=== PATIENT | male | born 1960 | race Caucasian/White ===

== ENCOUNTER 2020-12-05 09:50 | Inpatient (IN) | payer OTHER, SELFPAY ==
[2020-12-05] VITALS (32 sets, daily range): BP systolic 124–216; BP diastolic 64–157; PULSE 51–90; RESP 12–26; TEMP 36.2–36.8; O2SAT 87–98; BMI 44.4
--- NOTE | 2020-12-05 09:54 | XR_ITS ---
WS: [id number] Portable AP upright chest, 12/05/2020 Clinical Data: chest pain Comparison: Portable chest, 03/24/2011. Findings: No nodules, masses or effusions are seen. The heart is enlarged. The pulmonary vascularity is not increased. No pneumonia or pneumothorax is seen. The aortic arch is tortuous as is the descend ing aorta. XR/XR chest 1V portable [id number] Impression: Atherosclerotic sclerosis and cardiomegaly.
--- NOTE | 2020-12-05 09:54 | ECG_ITS ---
[facility] Test Date: 2020-12-05 Pat Name: Seda Azar Department: Room: Gender: Male General Inspector: : 1960 Requested By: Jimena Rinaldi Order Number: [id number] Katty MD: Lance Navarrete M.D. Measurements Intervals [place] Rate: 85 P: 57 AK: 249 QRS: -85 QRSD: 128 T: 89 QT: 412 QTc: 492 Interpretive Statements SINUS RHYTHM WITH FIRST DEGREE AV BLOCK MODERATE INTRAVENTRICULAR CONDUCTION DELAY [110+ ms QRS DURATION] MODERATE ST DEPRESSION [0.05+ mV ST DEPRESSION] No previous ECG available for comparison Electronically Signed On 12-05-2020 17:14:12 MULTISKILL OPERATOR by Lance Navarrete M.D. [email or web address]/Ov/[id number]
--- NOTE | 2020-12-05 10:07 | W.ED.SOB ---
Documented by User: SHEILA Caldwell 12/05/20 14:40 HPI - SOB/Dyspnea General: Chief Complaint: Shortness of Breath/Dyspnea Stated Complaint: SOB/Tightness/racing heart Time Seen by Provider: 12/05/20 09:52 Source: patient Mode of arrival: ambulatory Limitations: no limitations History of Present Illness: HPI Narrative: Patient is a very nice 60-year-old gentleman with a history of NSTEMI, HTN, and CHF here for complaints of shortness of breath and intermittent chest discomfort and palpitations. Patient tells me he has noticed worsening shortness of breath over the past few weeks-worse with lying flat. He has had to use several pillows to sit up at night. Patient does take 40 mg Lasix daily. He has not noticed any weight gain or swelling to his lower extremities. He is having intermittent dull achy sensations to the right side of his chest over the past few days. He has also noticed intermittent feelings of his heart racing . Patient tells me he was diagnosed with an NSTEMI in 2010. He was admitted to our facility during that visit. Documentation shows a echocardiogram in 2010 being performed with a EF of 35-40%. Patient has not had any outpatient follow-up following that visit stating he did not have insurance at the time. Patient takes diltiazem and lisinopril daily for his blood pressure. He tells me over the past few weeks he has noticed elevated blood pressures. Patient noted to be extremely hypertensive upon arrival at 212/134. He does not complain of a headache or visual changes at this time. MD elicited complaint: shortness of breath and chest pain Pertinent past history: congestive heart failure and other (HTN, NSTEMI) Onset (ago): day(s) Timing: intermittent Exacerbating factors: lying flat Relieving factors: upright position Associated symptoms: Reports chest pain, orthopnea and palpitations; Deny abdominal pain, chest congestion, dizziness, fever(s), hemoptysis, lightheadedness, nausea, syncope or vomiting Related Data: Home oxygen amount: none Review of Systems Const: Denies: fever(s), chills, body aches, fatigue or malaise Eyes: Denies: change in vision Card: Reports: chest pain, palpitations, dyspnea on exertion and orthopnea; Denies: irregular heart rhythm, edema, swelling of feet/ankles, lightheadedness, syncope, pre-syncope, leg pain with exertion or acrocyanosis Resp: Reports: dyspnea; Denies: productive cough, non-productive cough, wheezing, stridor, pain on inspiration, change in phlegm color, hemoptysis or chest congestion GI: Denies: abdominal pain, nausea, vomiting or diarrhea Musc: Denies: neck pain or back pain Skin/Breast: Denies: rash Neuro: Denies: headache(s), numbness in extremities, weakness in extremities, sensory changes, lack of coordination, difficulty walking, frequent falls, dizziness, vertigo, confusion, behavioral changes, Slurred speech present or difficulty communicating thoughts Physical Exam Const: COMMON NORMALS: no acute distress, patient oriented x3, no limitations and alert GENERAL APPEARANCE: cooperative NUTRITIONAL APPEARANCE: obese ORIENTATION/CONSCIOUSNESS: Yes awake, Yes oriented to person, Yes oriented to place and Yes oriented to time HENMT: COMMON NORMALS: normocephalic and atraumatic HEAD & SCALP: normocephalic and atraumatic Resp: COMMON NORMALS: normal respiratory effort and clear to auscultation bilaterally AUSCULTATION: clear to auscultation bilaterally Cardio: COMMON NORMALS: regular rate and regular rhythm RATE: regular rate RHYTHM: regular rhythm GI: COMMON NORMALS: Normal to inspection, nondistended, normoactive bowel sounds present, Soft to palpation, non-tender, No hepatosplenomegaly present and no masses INSPECTION: No Anasarca PALPATION: Yes Soft to palpation and Yes No hepatosplenomegaly present Extremity: COMMON NORMALS: capillary refill normal, no clubbing, cyanosis or edema, no calf tenderness and no pedal edema Neuro: SENSORIUM/ORIENTATION: Yes alert, Yes oriented to person, Yes oriented to place and Yes oriented to time Skin: COMMON NORMALS: no rashes or lesions noted GENERAL SKIN EXAM: no rashes or lesions noted Course Vital Signs: Vital signs: Vital Signs Temperature 97.2 F L 12/05/20 09:54 Pulse Rate 83 12/05/20 14:34 Respiratory Rate 20 H 12/05/20 14:34 Blood Pressure 196/126 12/05/20 14:34 Pulse Oximetry 96 12/05/20 14:34 MDM - SOB/Dyspnea MDM Narrative: Medical decision making narrative: Patient here with what sounds like CHF exacerbation. He is extremely hypertensive. Initial troponin is 59-this is most likely related to his BNP of over 2500 however patient has complained of some chest pains over the past few days. EKG does not show any ischemic changes. Patient has no vein access technician for appropriate follow-up. He has not had a stress test or echocardiogram since 2010. He has several risk factors for cardiac disease. I think patient would benefit from coming into the hospital at this time. I spoken to Dr. Phan who will speak to hospitalist for admission. Lab Data: Labs: Lab Results 12/05/20 12/05/20 12/05/20 Range/Units 10:22 10:22 10:22 WBC 8.2 (4.0-10.0) 10^3/ uL RBC 4.78 (4.1-5.3) 10^6/u L Hgb 14.7 (11.7-16.6) g/dL Hct 44.3 (42.0-52.0) % MCV 92.7 (80-94) fL MCH 30.8 (28.0-34.0) pg MCHC 33.2 (30.0-36.0) g/dL RDW 13.6 (12.1-15.1) % Plt Count 258 (130-400) 10^3/c mm MPV 9.9 (7.4-10.4) fL Neut % (Auto) 73.4 % Lymph % (Auto) 18.2 % [place] % (Auto) 7.2 % Eos % (Auto) 0.6 % Baso % (Auto) 0.5 % Neut # (Auto) 6.05 (1.8-7.7) 10^3/u L Lymph # (Auto) 1.5 (0.8-4.8) 10^3/u L [place] # (Auto) 0.6 (0.2-0.9) 10^3/u L Eos # (Auto) 0.1 (0.0-0.8) 10^3/u L Baso # (Auto) 0.0 (0.0-0.1) 10^3/u L Nucleated RBC % (a uto) 0 % Nucleated RBCs # 0.0 /100WBC D-Dimer (0-0.59) ug/mIFE U Sodium 139 (136-145) mmol/L Potassium 4.1 (3.5-5.1) mmol/L Chloride 103 (98-107) mmol/L Carbon Dioxide 26 (22-29) mmol/L Anion Gap 14.1 (5-19) BUN 16 (6-20) mg/dL Creatinine 1.3 H (0.7-1.2) mg/dL GFR Calculation 56.5 L (90-130) mL/min Glucose 125 H (65-115) mg/dL Calculated Osmolal ity 291 (285-295) mOsm/k g Calcium 9.1 (8.5-10.5) mg/dL Total Bilirubin 0.5 (0.15-1.2) mg/dL AST 30 (0-40) U/L ALT 31 (0-41) U/L Alkaline Phosphata se 58 (40-130) IU/L Troponin T Baselin e 59 H (0-15) ng/L Troponin T 120 Min [place] (0-15) ng/L Delta Troponin T (0-10) ABS# NT-Pro-B Natriuret Pep 2552 H (0-125) pg/mL Total Protein 6.4 L (6.6-8.7) g/dL Albumin 3.9 (3.5-5.2) g/dL Globulin 2.5 (1.3-4.6) g/dL SARS-CoV-2 Ag (Rap id) (Negative) 12/05/20 12/05/20 12/05/20 Range/Units 10:23 12:22 13:25 WBC (4.0-10.0) 10^3/ uL RBC (4.1-5.3) 10^6/u L Hgb (11.7-16.6) g/dL Hct (42.0-52.0) % MCV (80-94) fL MCH (28.0-34.0) pg MCHC (30.0-36.0) g/dL RDW (12.1-15.1) % Plt Count (130-400) 10^3/c mm MPV (7.4-10.4) fL Neut % (Auto) % Lymph % (Auto) % [place] % (Auto) % Eos % (Auto) % Baso % (Auto) % Neut # (Auto) (1.8-7.7) 10^3/u L Lymph # (Auto) (0.8-4.8) 10^3/u L [place] # (Auto) (0.2-0.9) 10^3/u L Eos # (Auto) (0.0-0.8) 10^3/u L Baso # (Auto) (0.0-0.1) 10^3/u L Nucleated RBC % (a uto) % Nucleated RBCs # /100WBC D-Dimer 0.47 (0-0.59) ug/mIFE U Sodium (136-145) mmol/L Potassium (3.5-5.1) mmol/L Chloride (98-107) mmol/L Carbon Dioxide (22-29) mmol/L Anion Gap (5-19) BUN (6-20) mg/dL Creatinine (0.7-1.2) mg/dL GFR Calculation (90-130) mL/min Glucose (65-115) mg/dL Calculated Osmolal ity (285-295) mOsm/k g Calcium (8.5-10.5) mg/dL Total Bilirubin (0.15-1.2) mg/dL AST (0-40) U/L ALT (0-41) U/L Alkaline Phosphata se (40-130) IU/L Troponin T Baselin e (0-15) ng/L Troponin T 120 Min [place] 62.86 H (0-15) ng/L Delta Troponin T 3.86 (0-10) ABS# NT-Pro-B Natriuret Pep (0-125) pg/mL Total Protein (6.6-8.7) g/dL Albumin (3.5-5.2) g/dL Globulin (1.3-4.6) g/dL SARS-CoV-2 Ag (Rap id) Negative (Negative) Imaging Data^: CXR: Radiologist's impression: [address] [address] XRay Report Signed Patient: Seda Azar JR Unit #: [id number] : 1960 Age/Sex: 60 / M ADM Date: 12/05/20 Loc: ER Room/Bed: Attending Dr: Ordering Provider/Ordering MD: Jimena Rinaldi Date of Service: 12/05/20 Procedure(s): XR chest 1V portable [id number] Accession Number(s): [id number] Report Number: [id number] WS: [id number] Portable AP upright chest, 12/05/2020 Clinical Data: chest pain Comparison: Portable chest, 03/24/2011. Findings: No nodules, masses or effusions are seen. The heart is enlarged. The pulmonary vascularity is not increased. No pneumonia or pneumothorax is seen. The aortic arch is tortuous as is the descending aorta. XR/XR chest 1V portable [id number] Impression: Atherosclerotic sclerosis and cardiomegaly. Dictated By: Aspen Hill MD Signed By: Aspen Hill MD Signed Date/Time: 12/05/20 1016 DD/ 1012 Discharge Plan Discharge Patient Disposition: Admitted As Inpatient Admit Provider: Veronica Bazan Clinical Impression: Hypertensive urgency, Nonadherence to medication Acute exacerbation of CHF (congestive heart failure) Qualifiers: Heart failure type: unspecified Qualified Code(s): I50.9 - Heart failure, unspecified Chest pain Qualifiers: Chest pain type: unspecified Qualified Code(s): R07.9 - Chest pain, unspecified Condition: Stable Coding Level of Care Code ED [employer] Principal for Chg Fwd Exam Detailed Documented by User: Alcides Phan MD 12/05/20 14:42 HPI - SOB/Dyspnea General: Chief Complaint: Shortness of Breath/Dyspnea Stated Complaint: SOB/Tightness/racing heart Time Seen by Provider: 12/05/20 09:52 Course Vital Signs: Vital signs: Vital Signs Temperature 97.2 F L 12/05/20 09:54 Pulse Rate 83 12/05/20 14:34 Respiratory Rate 20 H 12/05/20 14:34 Blood Pressure 196/126 12/05/20 14:34 Pulse Oximetry 96 12/05/20 14:34 MDM - SOB/Dyspnea MDM Narrative: Medical decision making narrative: Took over care from Ms. Rinaldi as he will need to be admitted. Elevated BNP and elevated troponin. He was given IV Lasix and has failed to respond to multiple hypertensives. We will add clonidine and admit him. Dr. Bazan accepts. Lab Data: Labs: Lab Results 12/05/20 12/05/20 12/05/20 Range/Units 10:22 10:22 10:22 WBC 8.2 (4.0-10.0) 10^3/ uL RBC 4.78 (4.1-5.3) 10^6/u L Hgb 14.7 (11.7-16.6) g/dL Hct 44.3 (42.0-52.0) % MCV 92.7 (80-94) fL MCH 30.8 (28.0-34.0) pg MCHC 33.2 (30.0-36.0) g/dL RDW 13.6 (12.1-15.1) % Plt Count 258 (130-400) 10^3/c mm MPV 9.9 (7.4-10.4) fL Neut % (Auto) 73.4 % Lymph % (Auto) 18.2 % [place] % (Auto) 7.2 % Eos % (Auto) 0.6 % Baso % (Auto) 0.5 % Neut # (Auto) 6.05 (1.8-7.7) 10^3/u L Lymph # (Auto) 1.5 (0.8-4.8) 10^3/u L [place] # (Auto) 0.6 (0.2-0.9) 10^3/u L Eos # (Auto) 0.1 (0.0-0.8) 10^3/u L Baso # (Auto) 0.0 (0.0-0.1) 10^3/u L Nucleated RBC % (a uto) 0 % Nucleated RBCs # 0.0 /100WBC D-Dimer (0-0.59) ug/mIFE U Sodium 139 (136-145) mmol/L Potassium 4.1 (3.5-5.1) mmol/L Chloride 103 (98-107) mmol/L Carbon Dioxide 26 (22-29) mmol/L Anion Gap 14.1 (5-19) BUN 16 (6-20) mg/dL Creatinine 1.3 H (0.7-1.2) mg/dL GFR Calculation 56.5 L (90-130) mL/min Glucose 125 H (65-115) mg/dL Calculated Osmolal ity 291 (285-295) mOsm/k g Calcium 9.1 (8.5-10.5) mg/dL Total Bilirubin 0.5 (0.15-1.2) mg/dL AST 30 (0-40) U/L ALT 31 (0-41) U/L Alkaline Phosphata se 58 (40-130) IU/L Troponin T Baselin e 59 H (0-15) ng/L Troponin T 120 Min [place] (0-15) ng/L Delta Troponin T (0-10) ABS# NT-Pro-B Natriuret Pep 2552 H (0-125) pg/mL Total Protein 6.4 L (6.6-8.7) g/dL Albumin 3.9 (3.5-5.2) g/dL Globulin 2.5 (1.3-4.6) g/dL SARS-CoV-2 Ag (Rap id) (Negative) 12/05/20 12/05/20 12/05/20 Range/Units 10:23 12:22 13:25 WBC (4.0-10.0) 10^3/ uL RBC (4.1-5.3) 10^6/u L Hgb (11.7-16.6) g/dL Hct (42.0-52.0) % MCV (80-94) fL MCH (28.0-34.0) pg MCHC (30.0-36.0) g/dL RDW (12.1-15.1) % Plt Count (130-400) 10^3/c mm MPV (7.4-10.4) fL Neut % (Auto) % Lymph % (Auto) % [place] % (Auto) % Eos % (Auto) % Baso % (Auto) % Neut # (Auto) (1.8-7.7) 10^3/u L Lymph # (Auto) (0.8-4.8) 10^3/u L [place] # (Auto) (0.2-0.9) 10^3/u L Eos # (Auto) (0.0-0.8) 10^3/u L Baso # (Auto) (0.0-0.1) 10^3/u L Nucleated RBC % (a uto) % Nucleated RBCs # /100WBC D-Dimer 0.47 (0-0.59) ug/mIFE U Sodium (136-145) mmol/L Potassium (3.5-5.1) mmol/L Chloride (98-107) mmol/L Carbon Dioxide (22-29) mmol/L Anion Gap (5-19) BUN (6-20) mg/dL Creatinine (0.7-1.2) mg/dL GFR Calculation (90-130) mL/min Glucose (65-115) mg/dL Calculated Osmolal ity (285-295) mOsm/k g Calcium (8.5-10.5) mg/dL Total Bilirubin (0.15-1.2) mg/dL AST (0-40) U/L ALT (0-41) U/L Alkaline Phosphata se (40-130) IU/L Troponin T Baselin e (0-15) ng/L Troponin T 120 Min [place] 62.86 H (0-15) ng/L Delta Troponin T 3.86 (0-10) ABS# NT-Pro-B Natriuret Pep (0-125) pg/mL Total Protein (6.6-8.7) g/dL Albumin (3.5-5.2) g/dL Globulin (1.3-4.6) g/dL SARS-CoV-2 Ag (Rap id) Negative (Negative) Discharge Plan Discharge Patient Disposition: Admitted As Inpatient Admit Provider: Veronica Bazan Clinical Impression: Hypertensive urgency, Nonadherence to medication Acute exacerbation of CHF (congestive heart failure) Qualifiers: Heart failure type: unspecified Qualified Code(s): I50.9 - Heart failure, unspecified Chest pain Qualifiers: Chest pain type: unspecified Qualified Code(s): R07.9 - Chest pain, unspecified Condition: Stable Coding Level of Care Code ED [employer] Principal for [facility] Fwd Exam Detailed
[2020-12-05] MEDS: metoprolol tartrate 1 mg/1 mL SDV 5 mL 5 MG IV (10:25)
[2020-12-05 10:46] LABS: Basophils % 0.5 %; Eosinophils # 0.1 10^3/uL (0.0-0.8); Eosinophils % 0.6 %; Hematocrit 44.3 % (42.0-52.0); Hemoglobin 14.7 g/dL (11.7-16.6); Lymphocytes # 1.5 10^3/uL (0.8-4.8); Lymphocytes % 18.2 %; Mean Corpuscular HGB Conc 33.2 g/dL (30.0-36.0); Mean Corpuscular Hemoglobin 30.8 pg (28.0-34.0); Mean Corpuscular Volume 92.7 fL (80-94); Mean Platelet Volume 9.9 fL (7.4-10.4); Monocytes # 0.6 10^3/uL (0.2-0.9); Monocytes % 7.2 %; Neutrophils # 6.05 10^3/uL (1.8-7.7); Neutrophils % 73.4 %; Nucleated Red Blood Cells % 0 %; Platelet Count 258 10^3/cmm (130-400); Red Blood Count 4.78 10^6/uL (4.1-5.3); Red Cell Distribution Width 13.6 % (12.1-15.1); White Blood Count 8.2 10^3/uL (4.0-10.0)
[2020-12-05 11:14] LABS: Troponin(5th) Baseline 59 ng/L (0-15)
[2020-12-05 11:22] LABS: Alanine Aminotransferase 31 U/L (0-41); Albumin Level 3.9 g/dL (3.5-5.2); Alkaline Phosphatase 58 IU/L (40-130); Anion Gap 14.1 (5-19); Aspartate Amino Transferase 30 U/L (0-40); Blood Urea Nitrogen 16 mg/dL (6-20); Calcium 9.1 mg/dL (8.5-10.5); Carbon Dioxide 26 mmol/L (22-29); Chloride 103 mmol/L (98-107); Creatinine Clr Calc Pharmacy 86.5779; Globulin 2.5 g/dL (1.3-4.6); Glomerular Filtration Rate 56.5 mL/min (90-130); Glucose 125 mg/dL (65-115); NT Pro B Type Natriuretic Pept 2552 pg/mL (0-125); Osmolality Calculated 291 mOsm/kg (285-295); Potassium 4.1 mmol/L (3.5-5.1); Sodium 139 mmol/L (136-145); Total Bilirubin 0.5 mg/dL (0.15-1.2); Total Protein 6.4 g/dL (6.6-8.7)
[2020-12-05] MEDS: aspirin 325 mg Tablet PO (11:36)
--- NOTE | 2020-12-05 11:54 | ECG_ITS ---
[facility] Test Date: 2020-12-05 Pat Name: Seda Azar Department: Room: Gender: Male Marine Rigger: : 1960 Requested By: Jimena Rinaldi Order Number: [id number] Katty MD: Lance Navarrete M.D. Measurements Intervals [place] Rate: 71 P: 53 NE: 242 QRS: -62 QRSD: 123 T: 89 QT: 437 QTc: 475 Interpretive Statements SINUS RHYTHM WITH FIRST DEGREE AV BLOCK INDETERMINATE AXIS MODERATE INTRAVENTRICULAR CONDUCTION DELAY [110+ ms QRS DURATION] NONSPECIFIC T-WAVE ABNORMALITY Compared to ECG 12/05/2020 09:57:31 T-wave abnormality now present ST (T wave) deviation no longer present Electronically Signed On 12-05-2020 17:23:45 EXPLOSIVES DETONATOR by Lance Navarrete M.D. [email or web address] adult care unitLendAmendmercy health anderson hospital.[employer]/store/OM/[id number]
[2020-12-05] MEDS: hyDRALAzine 10 mg Tablet PO (11:58)
[2020-12-05] MEDS: FUROsemide 10 mg/mL SDV 4mL 40 MG IVP (12:21)
[2020-12-05 13:13] LABS: Troponin 5 2HR 62.86 ng/L (0-15); Troponin 5 2HR Delta 3.86 ABS# (0-10)
[2020-12-05 13:46] LABS: D Dimer 0.47 ug/mIFEU (0-0.59)
[2020-12-05 14:14] LABS: SARS Covid-2 Antigen Negative (Negative)
--- NOTE | 2020-12-05 14:36 | PC.NURSE ---
Patient had a total of 850mL of urine output since IV lasix given.
--- NOTE | 2020-12-05 14:40 | PC.NURSE ---
Attempted to call report to to CSU at this time. customer service coordinator reported nurse was busy and the nurse would call back when she was available.
[2020-12-05] MEDS: cloNIDine 0.1 mg Tablet 0.2 MG PO (15:05)
--- NOTE | 2020-12-05 15:54 | ECG_ITS ---
[facility] Test Date: 2020-12-05 Pat Name: Seda Azar Department: Room: 112 Gender: Male [place]: : 1960 Requested By: Jimena Rinaldi Order Number: [id number] Katty MD: Lance Navarrete M.D. Measurements Intervals [place] Rate: 71 P: 44 AL: 237 QRS: -58 QRSD: 127 T: 91 QT: 454 QTc: 496 Interpretive Statements SINUS RHYTHM WITH FIRST DEGREE AV BLOCK MARKED LEFT AXIS DEVIATION [QRS AXIS < -30] MODERATE INTRAVENTRICULAR CONDUCTION DELAY [105+ ms QRS DURATION, 80+ ms Q/S IN V1/V2, NO Q AND 60+ ms R IN I/aVL/V5/V6] NONSPECIFIC T-WAVE ABNORMALITY PROLONGED QT INTERVAL Compared to ECG 12/05/2020 11:29:29 Left-axis deviation now present Prolonged QT interval now present Indeterminate axis no longer present T-wave abnormality still present Electronically Signed On 12-05-2020 17:18:13 REGISTERED NURSE RENAL by Lance Navarrete M.D. [id number]
--- NOTE | 2020-12-05 16:00 | PC.NURSE ---
Call placed to Dr. Bazan regarding elevated BP of 212/134 and 199/125. Orders received.
--- NOTE | 2020-12-05 16:03 | PC.NURSE ---
When I asked patient to use a urinal in order that we can monitor his urine output accurately he stated he used a urinal in the ER and vooided approximately 1200ml.
[2020-12-05] MEDS: nicardipine 20 MG/200 ML PREMIX 50 MG IV (16:28)
[2020-12-05] MEDS: acetaminophen 325 mg Tablet 650 MG PO (16:30)
[2020-12-05] MEDS: enoxaparin 40 mg/0.4 mL Syringe SUBCUT (16:31)
[2020-12-05] MEDS: lisinopril 20 mg Tablet PO (16:31)
[2020-12-05 16:51] LABS: Estmated Average Glucose 111; Hemoglobin A1C 5.5 % (4.0-6.0)
[2020-12-05 17:00] LABS: Chol HDL Ratio 3.22 mg/dL (1.0-5.00); Cholesterol 158 mg/dL (0-200); HDL Cholesterol 49 mg/dL (60-100); LDL Cholesterol Calculated 91 mg/dL (50-129); LDL HDL Ratio 1.86 RATIO (0.00-3.22); Thyroid Stimulating Hormone 1.08 uIU/mL (0.27-4.20); Triglycerides 92 mg/dL (0-150)
[2020-12-05] MEDS: metoprolol tartrate 50 mg Tablet 100 MG PO (17:03)
[2020-12-05] MEDS: famotidine 20 mg Tablet PO (17:03)
[2020-12-05 17:06] LABS: Troponin 5 6HR 65.62 ng/L (0-15); Troponin 5 6HR Delta 6.62 ng/L (0-12)
--- NOTE | 2020-12-05 17:45 | PC.NURSE ---
Patient transferred to ICU 103 after report given to Ju Hugo RN.
--- NOTE | 2020-12-05 18:27 | PM.HP ---
Providers/Chief Complaint Admitting Physician: Veronica Bazan MD Chief Complaint: SOB/Tightness/racing heart History of Present Illness Seda Azar JR is a 60 year old male with past medical history as outlined below who presented to the ER today with chief complaints of shortness of breath, orthopnea. Patient has a past medical history of CHF, currently on Lasix 40 mg p.o. daily, states being in his usual state of health until about 3 to 4 weeks ago when he started developing progressive shortness of breath, getting dyspneic with less than usual activity. Also has been unable to lie flat over the same timeframe. Denies any chest pain, however this morning states that he noted palpitations and right-sided chest discomfort which prompted arrival to the ER. Patient had similar symptoms 11 years ago at which point he had undergone a cardiac evaluation. He states that on echocardiogram he was noted to have some wall motion abnormalities, however subsequent stress test did not show any signs of reversible ischemia. He has never had an angiogram in the past. He denies having noted any lower extremity swelling, however on pointing out edema around bilateral ankles, states that this is usual for him. Denies any cough or sputum production. Denies fever He is currently on treatment with lisinopril, metoprolol and diltiazem. Denies any history of A. fib, does not know why he is on both metoprolol and diltiazem (for rate control purposes. Denies any nausea vomiting diaphoresis radiation of the pain. Diagnostics in the ER show mildly elevated troponin at baseline of around 60, 2-hour troponin delta less than 10, no acute ST-T wave changes on EKG. Blood pressure noted to be grossly elevated at 212 systolic. He was given 5 mg IV metoprolol, clonidine 0.2 mg, 10 mg p.o. hydralazine and 40 mg IV Lasix. Time of my evaluation this afternoon blood pressure was still at 210 and he was subsequently started on nicardipine drip in the [facility]. Review of Systems General: Reports: 10 or more systems reviewed and unremarkable except in HPI and below Const: Denies: fever(s), chills or body aches Eyes: Denies: change in vision, blurry vision or photophobia ENMT: Reports: hoarseness; Denies: throat pain, enlarged tonsils, odynophagia or nasal congestion Card: Reports: chest pain and palpitations; Denies: irregular heart rhythm, edema, swelling of feet/ankles, lightheadedness, pre-syncope, dyspnea on exertion or orthopnea Resp: Reports: dyspnea; Denies: productive cough, non-productive cough, wheezing, stridor, pain on inspiration, change in phlegm color, hemoptysis or chest congestion GI: Denies: abdominal pain, nausea, vomiting, hematemesis, coffee ground emesis, dysphagia, heartburn, diarrhea, constipation, GI cramping, change in stool character, hematochezia or melena : Denies: flank pain, dysuria, urinary frequency, urinary urgency, urinary hesitancy or hematuria Musc: Denies: neck pain, back pain, extremity pain, joint swelling, joint warmth or deformity Neuro: Denies: headache(s), numbness in extremities, weakness in extremities, sensory changes, difficulty walking, frequent falls, dizziness, vertigo, behavioral changes, Slurred speech present or seizure-like activity Psych: Denies: anxiety, depression, suicidal ideation or homicidal ideation Endo: Denies: polyuria, polydipsia, tired all the time, cold intolerance or hot flashes Papito/Lymph: Denies: easy bruising or easy bleeding Medications/Allergies Home Medications Medication Instructions Recorded Confirmed Last Taken Type diltiazem HCl 60 mg PO TID@04,12,17 12/05/20 12/05/20 12/05/20 History furosemide [Lasix] 40 mg PO DAILY@04 12/05/20 12/05/20 12/05/20 History lisinopril 20 mg PO BID@04,12/05/20 12/05/20 12/05/20 History metoprolol tartrate 100 mg PO BID@04,12/05/20 12/05/20 12/05/20 History Allergies Allergy/AdvReac Type Severity Reaction Status Date / Time Penicillins Allergy ALGY-Hives Verified 12/05/20 10:00 PFSH Acute PFSH: Medical History (Updated 12/05/20 @ 22:49 by Veronica Bazan MD) Hypertension Nonadherence to medication Family History Other Diabetes Social History Smoking and tobacco status: former smoker Alcohol intake: unknown Vitals/I&O/Wt Last Vital Signs Temp 98.3 F 12/05/20 16:05 Pulse 70 12/05/20 18:00 Resp 15 12/05/20 18:00 BP 125/64 12/05/20 18:00 Pulse Ox 91 12/05/20 18:00 12/05/20 12/05/20 12/05/20 06:59 14:59 22:59 Intake Total 213.334 / 213.334 Output Total 810 / 810 Balance -596.666 / -596.666 Weight last 48 hrs Weight 140.614 kg Physical Exam Narrative: EXAM NARRATIVE: GEN: Awake, alert and oriented, no acute distress CVS: S1S2 N RS: CTA B/L Abd: Soft, nt/nd , bs+ LINE RUNNER: no focal neuro deficits Data : 12/05/20 10:22 12/05/20 10:22 A&P Assessment and plan (1) Hypertensive urgency: Thus far received clonidine, metoprolol 5 mg IV, hydralazine 10 mg Lasix 40 mg IV Blood pressure continues to be in excess of 210 at the time of my evaluation, start nicardipine infusion in the [facility] and titrate for blood pressure response. Resume home dose of metoprolol 100 mg p.o. twice daily and lisinopril 20 mg p.o. twice daily Creatinine noted to be at 1.3, this is patient's baseline. Hold Hold diltiazem until indication for both metoprolol and diltiazem can be ascertained. Continue telemetry monitoring while patient remains in house Status: Acute (2) Chest pain: Atypical right-sided chest pain, needs further evaluation. Troponins are mildly elevated, likely risk control field representative of demand ischemia in the setting of hypertensive urgency. Troponin delta also not significant, denies any acute chest pain, ST-T wave no changes on EKG. Overall picture less concerning for acute [place], however cannot remove out angina. Patient will likely need stress test, however needs to be optimized from a CHF and blood pressure perspective first. Echocardiogram to estimate EF, diastolic function and evaluate for any R WMA's. Status: Acute Qualifiers: Chest pain type: unspecified Qualified Code(s): R07.9 - Chest pain, unspecified (3) Acute exacerbation of CHF (congestive heart failure): She reports past history of CHF, currently on 40 mg of p.o. Lasix daily. Currently started on Lasix 40 mg IV daily, monitor for response CHF exacerbation as evidenced by elevated BNP and lower extremity edema. Echocardiogram as above. Monitor LEONARDO closely, Daily weights Status: Acute Qualifiers: Heart failure type: unspecified Qualified Code(s): I50.9 - Heart failure, unspecified Attestations Medical Necessity Statement*: Greater than 2 midnight anticipated for management of hypertensive urgency, currently on nicardipine infusion, overlap with oral medication and try to work titrate off the drip, need for IV diuretics. Coding Level of Care Code Acute Injection Molding Machine Tender for [facility] Diagnoses Hypertensive urgency I16.0 Chest pain R07.9 Chest pain type: unspecified Acute exacerbation of CHF (congestive heart failure) I50.9 Heart failure type: unspecified
[2020-12-05] MEDS: nicardipine 20 MG/200 ML PREMIX 30 MG IV (20:23)
[2020-12-05] MEDS: morphine 4 mg/mL SDV 1 mL 2 MG IVP (20:52)
[2020-12-06] VITALS (75 sets, daily range): BP systolic 128–189; BP diastolic 70–137; PULSE 50–77; RESP 7–39; TEMP 36.4–36.6; O2SAT 85–99
[2020-12-06] MEDS: morphine 4 mg/mL SDV 1 mL 2 MG IVP ×2 (00:31→04:42)
[2020-12-06] MEDS: nicardipine 20 MG/200 ML PREMIX 30 MG IV ×2 (01:38→09:32)
--- NOTE | 2020-12-06 02:25 | PC.NURSE ---
CONSULTED RT Pt sleeping, and SpO2 will dip to 70%'s. Rt was notified. Rt stated pt has never had a sleep study, so she does not want to use a CPAP.
[2020-12-06 04:02] LABS: Alanine Aminotransferase 25 U/L (0-41); Albumin Level 3.5 g/dL (3.5-5.2); Alkaline Phosphatase 49 IU/L (40-130); Anion Gap 12.1 (5-19); Aspartate Amino Transferase 25 U/L (0-40); Blood Urea Nitrogen 17 mg/dL (6-20); Calcium 9.1 mg/dL (8.5-10.5); Carbon Dioxide 28 mmol/L (22-29); Chloride 102 mmol/L (98-107); Glomerular Filtration Rate 56.5 mL/min (90-130); Glucose 99 mg/dL (65-115); Osmolality Calculated 288 mOsm/kg (285-295); Potassium 4.1 mmol/L (3.5-5.1); Sodium 138 mmol/L (136-145); Total Bilirubin 0.6 mg/dL (0.15-1.2); Total Protein 6.5 g/dL (6.6-8.7)
[2020-12-06 04:06] LABS: Creatinine Clr Calc Pharmacy 86.5779
[2020-12-06] MEDS: FUROsemide 40 mg Tablet PO (04:38)
[2020-12-06] MEDS: famotidine 20 mg Tablet PO ×2 (09:32→17:08)
--- NOTE | 2020-12-06 10:31 | P.PN_ITS ---
Subjective Subjective: Interval history: Patient needed to be placed back on nicardipine infusion overnight, currently at 3 mg/h. Metoprolol not given this morning as patient's heart rate dropped down to bradycardia of 40s. Lisinopril was additionally placed on hold yesterday to monitor creatinine again this morning. It remained stable at 1.3, which is close to patient's last known baseline from 2010. Patient denies any current chest discomfort or dyspnea. Saturating 92% on room air. No further episodes of palpitations. Troponin series with troponin in the 60s, without significant delta. Urine output 2 L after being given 40 mg of p.o. Lasix this morning. Medications: Reviewed: Yes Vitals/I&O/Wt Last Vital Signs Temp 97.6 F 12/06/20 07:30 Pulse 67 12/06/20 08:43 Resp 17 12/06/20 08:30 BP 156/102 12/06/20 08:30 Pulse Ox 92 12/06/20 08:43 12/05/20 12/06/20 12/06/20 22:59 06:59 14:59 Intake Total 320.000 / 320.000 313.333 / 633.333 405.5 / 405.5 Output Total 810 / 810 775 / 1585 1200 / 1200 Balance -490.000 / -490.000 -461.667 / -951.667 -794.5 / -794.5 Weight last 48 hrs Weight 140.614 kg Physical Exam Narrative: EXAM NARRATIVE: GEN: Awake, alert and oriented, no acute distress CVS: S1S2 N RS: CTA B/L Abd: Soft, nt/nd , bs+ ORGANIC SECTION TECHNICAL LEAD: no focal neuro deficits Data : 12/05/20 10:22 12/06/20 03:06 A&P Assessment and plan (1) Hypertensive urgency: Overnight needed to be placed back on nicardipine drip, currently going at 3 mg an hour. Discontinue metoprolol given bradycardia in the 40s. Start amlodipine 10 mg p.o. daily Resume lisinopril 20 mg p.o. twice daily with close monitoring of renal function and electrolytes. Added hydralazine 10 mg p.o. 4 times daily as needed Plan for today will be attempted to wean off the nicardipine drip while overlapping with oral medications. Discontinued home diltiazem additionally due to bradycardia. Status: Acute (2) Chest pain: Atypical right-sided chest pain, which is now resolved. Troponins are mildly elevated, likely wine sales representative of demand ischemia in the setting of hypertensive urgency. Troponin delta also not significant, denies any acute chest pain, ST-T wave no changes on EKG. Overall picture less concerning for acute [place], however cannot rule out angina. Patient will likely need stress test, however needs to be optimized from a CHF and blood pressure perspective first. Echocardiogram taken, results are pending at this present time. Status: Acute Qualifiers: Chest pain type: unspecified Qualified Code(s): R07.9 - Chest pain, unspecified (3) Acute exacerbation of CHF (congestive heart failure): he reports past history of CHF, currently on 40 mg of p.o. Lasix daily. Questionable compliance at home CHF exacerbation as evidenced by elevated BNP and lower extremity edema. Echocardiogram pending at this present time Urine output 2 L, will continue with 40 mg p.o. Lasix for now and titrate as needed Daily weights Status: Acute Qualifiers: Heart failure type: unspecified Qualified Code(s): I50.9 - Heart failure, unspecified Additional A&P Information NSTEMI as noted in his past history, however after talking to the patient he states that he has never had an angiogram or stent placement in the past. He had a stress test in 2010 which she reports was normal. He used to be on aspirin several years ago but discontinued it. I am not certain if he has a history of CAD in the past Currently his 10-year ASCVD risk score is at 16.9%. Add aspirin 81 mg p.o. for primary prevention and atorvastatin 20 mg p.o. daily given moderate ASCVD risk. DVT ppx: lovenox Full code Attestations Medical Necessity Statement*: Hypertensive urgency, CHF, needs BP control, titration off nicardipine drip and optimization of volume status Coding Level of Care Code Acute Boring Machine Set Up Operator Jig for [facility] Al Diagnoses Hypertensive urgency I16.0 Chest pain R07.9 Chest pain type: unspecified Acute exacerbation of CHF (congestive heart failure) I50.9 Heart failure type: unspecified
[2020-12-06] MEDS: aspirin 81 mg EC Tablet PO (10:51)
[2020-12-06] MEDS: amlodipine 10 mg Tablet PO (10:51)
[2020-12-06] MEDS: lisinopril 20 mg Tablet PO (17:08)
[2020-12-06] MEDS: enoxaparin 40 mg/0.4 mL Syringe SUBCUT (17:08)
--- NOTE | 2020-12-06 17:56 | PC.NURSE ---
Patient came in with Hypertension crisis, is on a Cardine drip that we are in the process of weaning. Dr Ordoñez rounded and added amlodipine, and prn hydralazine to help control his blood pressure, currently holding his beta blockers, and added aspirin and Lipitor at bedtime. Patient received a dose of lisinopril at 1700 hoping to turn drip off at 1800 and medically manage blood pressure with PO pills. Patient has been appropriate and cooperative all day. He is hoping to get to go home tomorrow.
--- NOTE | 2020-12-06 18:34 | USCV_ITS ---
Seda Azar Age: 60 Gender: M : 1960 Exam Date: 12/06/2020 06:12 Ordering Phys: Veronica Bazan MD Technologist: Milton Riggs Exam Location: [facility] [place] Indication: atypical chest pain BP: 130 / 76 HR: 52 Rhythm: Sinus Technical Quality: Adequate MEASUREMENTS (Male / Female) Normal Values 2D ECHO LV Diastolic Diameter PLAX 6.5 cm 4.2 - 5.9 / 3.9 - 5.3 cm LV Systolic Diameter PLAX 5.2 cm IVS Diastolic Thickness 1.3 cm 0.6 - 1.0 / 0.6 - 0.9 cm IVS Systolic Thickness 2.3 cm LVPW Diastolic Thickness 1.8 cm 0.6 - 1.0 / 0.6 - 0.9 cm LVPW Systolic Thickness 1.8 cm LVOT Diameter 2.1 cm LV Ejection Fraction 2D Teich 40.0 % LV Ejection Fraction MOD 2C 45.8 % LV Ejection Fraction 2C AL 45.4 % LA Diameter 5.7 cm LA Width 5.3 cm LA Height 7.3 cm RA Width 5.1 cm RA Height 6.4 cm Aorta at Sinotubular Diameter 3.2 cm M-MODE LV Diastolic Diameter MM 6.8 cm 4.2 - 5.9 / 3.9 - 5.3 cm LV Systolic Diameter MM 4.4 cm LV Ejection Fraction MM Teich 63.6 % IVS Diastolic Thickness MM 1.7 cm 0.6 - 1.0 / 0.6 - 0.9 cm IVS Systolic Thickness MM 2.0 cm LVPW Diastolic Thickness MM 1.7 cm 0.6 - 1.0 / 0.6 - 0.9 cm LVPW Systolic Thickness MM 2.3 cm RV Diastolic Diameter MM 2.4 cm Aortic Annulus Diameter 3.8 cm LA Ao Ratio MM 1.7 MV E Point Septal Separation 1.7 cm DOPPLER AV Peak Velocity 151.0 cm/s LVOT Peak Velocity 92.0 cm/s AV Area Cont Eq vti 2.0 cm squared AV Area Cont Eq pk 2.2 cm squared MV Area PHT 5.0 cm squared Mitral E to A Ratio 2.5 MV E' Velocity 62.5 cm/s Mitral E to MV E' Ratio 24.3 Mitral E to LV E' Lateral Ratio 20.2 Mitral E to LV E' Septal Ratio 31.4 TR Peak Velocity 165.3 cm/s TR Peak Gradient 10.9 mmHg TV Peak E Velocity 94.0 cm/s Right Atrial Pressure 3.0 mmHg Pulmonary Artery Systolic Pressu 13.9 mmHg PV Peak Velocity 78.0 cm/s FINDINGS Left Ventricle Diffuse hypokinesia of the left ventricle with a diminished ejection fraction of around 40 to 45%. Mildly dilated left ventricle. Right Ventricle Normal right ventricular size with a slightly diminished ejection fraction Right Atrium Mildly increased right atrial size. Left Atrium Mildly increased left atrial size. Mitral Valve Mild mitral valve regurgitation. Thickened mitral valve. Aortic Valve Thickened aortic valve. Tricuspid Valve No gross abnormalities noted Pulmonic Valve No gross abnormalities noted Pericardium Normal pericardium without effusion. Aorta Normal ascending aorta dimension. CONCLUSIONS Diffuse hypokinesia of the left ventricle with a diminished ejection fraction of around 40 to 45%. Mildly dilated left ventricle. Normal right ventricular size with a slightly diminished ejection fraction. Mild biatrial enlargement Millisecond aortic and mitral valves Mild mitral valve regurgitation. There is no pericardial effusion. There are no intracardiac masses. No previous study is available for comparison. Dr Kirby Child MD [facility] (Electronically Signed) Final Date: 06 December 2020 19:15 S
[2020-12-06] MEDS: hyDRALAzine 10 mg Tablet PO (19:04)
[2020-12-06] MEDS: atorvastatin 40 mg Tablet 20 MG PO (20:47)
[2020-12-07] VITALS (73 sets, daily range): BP systolic 139–216; BP diastolic 88–149; PULSE 59–86; RESP 7–32; TEMP 36.5–37; O2SAT 87–99
[2020-12-07] MEDS: lisinopril 20 mg Tablet PO ×2 (04:21→17:09)
[2020-12-07] MEDS: FUROsemide 40 mg Tablet PO ×2 (04:21→17:09)
--- NOTE | 2020-12-07 06:18 | PC.NURSE ---
Serafin gtt off at 2120. BP WNL, continue care.
[2020-12-07] MEDS: aspirin 81 mg EC Tablet PO (08:06)
[2020-12-07] MEDS: hyDRALAzine 10 mg Tablet PO (08:07)
[2020-12-07] MEDS: amlodipine 10 mg Tablet PO (08:07)
[2020-12-07] MEDS: famotidine 20 mg Tablet PO ×2 (08:07→17:09)
[2020-12-07] MEDS: metoprolol tartrate 25 mg Tablet PO ×2 (10:11→20:13)
[2020-12-07] MEDS: hyDRALAzine 10 mg Tablet 50 MG PO ×3 (10:11→20:16)
[2020-12-07 15:02] LABS: Alanine Aminotransferase 25 U/L (0-41); Alkaline Phosphatase 60 IU/L (40-130); Blood Urea Nitrogen 17 mg/dL (6-20); Calcium 9.3 mg/dL (8.5-10.5); Carbon Dioxide 29 mmol/L (22-29); Chloride 98 mmol/L (98-107); Globulin 3.5 g/dL (1.3-4.6); Glucose 115 mg/dL (65-115); Osmolality Calculated 284 mOsm/kg (285-295); Sodium 136 mmol/L (136-145); Total Bilirubin 0.6 mg/dL (0.15-1.2); Total Protein 7.5 g/dL (6.6-8.7)
[2020-12-07 15:20] LABS: Anion Gap 13.3 (5-19); Aspartate Amino Transferase 27 U/L (0-40); Potassium 4.3 mmol/L (3.5-5.1)
[2020-12-07] MEDS: nicardipine 20 MG/200 ML PREMIX 2.5 MG IV (15:53)
--- NOTE | 2020-12-07 16:42 | PM.PN ---
Subjective Subjective: Interval history: Patient was off nicardipine gtt at the time of my eval No chest pain or dyspnea Still he is feeling great Noted stress test 10 years prior No bradycardia Medications: Reviewed: Yes Vitals/I&O/Wt Last Vital Signs Temp 98.6 F 12/07/20 15:45 Pulse 71 12/07/20 16:30 Resp 15 12/07/20 16:00 BP 160/101 12/07/20 16:30 Pulse Ox 96 12/07/20 16:30 12/07/20 12/07/20 12/07/20 06:59 14:59 22:59 Intake Total 120 / 725.5 350 / 350 Output Total 900 / 4125 850 / 850 Balance -780 / -3399.5 -500 / -500 Weight last 48 hrs Weight 128.367 kg Physical Exam Narrative: EXAM NARRATIVE: GEN: Awake, alert and oriented, no acute distress CVS: S1S2 N RS: CTA B/L Abd: Soft, nt/nd , bs+ COMPLIANCE ASSISTANT: no focal neuro deficits Data : 12/05/20 10:22 12/07/20 14:24 A&P Assessment and plan (1) Hypertensive urgency: - Increased hydralazine to 50 mg PO QID - Lasix to BID - Added low dose metoprolol 25 mg PO BID - Monitor on tele for bradycardia - Will not resume diltiazem - Continue Lisinopril 20 mg BID - Norvasc 10 mg PO daily - Can follow up outpatient for work up of secondary causes of hypertension - Cardiac work up as noted below Status: Acute (2) Chest pain: Echo - no prior to compare however EF 40-45% CP resolved Will likely need stress test prior to discharge Possible need for ischemic work up Status: Acute Qualifiers: Chest pain type: unspecified Qualified Code(s): R07.9 - Chest pain, unspecified (3) Acute exacerbation of CHF (congestive heart failure): Lasix as ordered above ECHO - EF 40-45% Ischemic work-up as noted above. Status: Acute Qualifiers: Heart failure type: unspecified Qualified Code(s): I50.9 - Heart failure, unspecified Additional A&P Information NSTEMI - Possible type 2 - Asa / statin - BP meds as noted above - ECHO-EF 40-45% - Stress test likely on wednesday - Consider cardiology consult - If BP remains stable off nicardopine - transfer to Cardiac step-down DVT ppx: lovenox Full code Attestations Medical Necessity Statement*: Will require further hospitalization for managment of uncontrolled htn, newly dx systolic heart failure and further cardiac work up Time Spent in Patient Care: Greater than 35 minutes (>than 50% of time spent in counselling and/or direct pt care on unit). Coding Level of Care Code Acute Manager Reliability for [facility] Fwd Diagnoses Hypertensive urgency I16.0 Chest pain R07.9 Chest pain type: unspecified Acute exacerbation of CHF (congestive heart failure) I50.9 Heart failure type: unspecified
[2020-12-07] MEDS: enoxaparin 40 mg/0.4 mL Syringe SUBCUT (17:09)
--- NOTE | 2020-12-07 18:12 | PC.NURSE ---
Patient has been appropriate and cooperative all day. Hoped to be able to send him to med surg but had to re put him back on Cardine drip at 1500, gave him all his PO meds that we added and still he was above [address] Ansari added hydrazine 50mg Tid and restarted his PO metoprolol but adjusted the dose to 25mg BID. Also added lasix Bid to help patient pull off extra fluid, Patient has dropped 6 pounds from yesterday. He has had over 1500 out on my shift so far. Hoping with added meds and some fluid removal that blood pressure will start to come down with time. Echo completed a few days ago, showed an EF of 40 to 45 percent, planning on an outpatient stress test and maybe a sleep study.
[2020-12-07] MEDS: atorvastatin 40 mg Tablet 20 MG PO (20:14)
[2020-12-08] VITALS (61 sets, daily range): BP systolic 126–233; BP diastolic 80–188; PULSE 51–96; RESP 10–28; TEMP 36.3–36.8; O2SAT 89–98
[2020-12-08] MEDS: lisinopril 20 mg Tablet PO ×2 (04:21→17:08)
[2020-12-08] MEDS: FUROsemide 40 mg Tablet PO ×2 (04:21→17:08)
[2020-12-08 06:35] LABS: Alanine Aminotransferase 20 U/L (0-41); Albumin Level 3.5 g/dL (3.5-5.2); Alkaline Phosphatase 59 IU/L (40-130); Anion Gap 14.2 (5-19); Aspartate Amino Transferase 23 U/L (0-40); Blood Urea Nitrogen 16 mg/dL (6-20); Calcium 8.7 mg/dL (8.5-10.5); Carbon Dioxide 26 mmol/L (22-29); Chloride 105 mmol/L (98-107); Globulin 3.2 g/dL (1.3-4.6); Glomerular Filtration Rate 76.5 mL/min (90-130); Glucose 101 mg/dL (65-115); Osmolality Calculated 293 mOsm/kg (285-295); Potassium 4.2 mmol/L (3.5-5.1); Sodium 141 mmol/L (136-145); Total Bilirubin 0.6 mg/dL (0.15-1.2); Total Protein 6.7 g/dL (6.6-8.7)
[2020-12-08] MEDS: hyDRALAzine 10 mg Tablet 50 MG PO ×2 (08:02→14:13)
[2020-12-08] MEDS: famotidine 20 mg Tablet PO ×2 (08:03→17:08)
[2020-12-08] MEDS: aspirin 81 mg EC Tablet PO (08:03)
[2020-12-08] MEDS: amlodipine 10 mg Tablet PO (08:03)
[2020-12-08] MEDS: metoprolol tartrate 25 mg Tablet PO (08:04)
--- NOTE | 2020-12-08 12:27 | PM.PN ---
Subjective Subjective: Interval history: BP currently 155/95 mmhg, >200 this morning , off nicardipine drip Medications: Reviewed: Yes Vitals/I&O/Wt Last Vital Signs Temp 98.2 F 12/08/20 07:30 Pulse 78 12/08/20 09:45 Resp 13 12/08/20 05:45 BP 155/95 12/08/20 09:45 Pulse Ox 92 12/08/20 09:45 12/07/20 12/08/20 12/08/20 21:59 06:59 14:59 Intake Total Output Total 350 / 350 Balance -350 / -350 Weight last 48 hrs Weight 128.367 kg Physical Exam Narrative: EXAM NARRATIVE: GEN: Awake, alert and oriented, no acute distress CVS: S1S2 N RS: CTA B/L Abd: Soft, nt/nd , bs+ MECHANICAL SPECIALIST: no focal neuro deficits Data : 12/05/20 10:22 12/08/20 05:12 A&P Assessment and plan (1) Hypertensive urgency: Off nicardipine drip Continue amlodipine 10 mg p.o. daily, lisinopril 20mg BID, hydralazine 50 TID Plan for today will be attempted to wean off the nicardipine drip while overlapping with oral medications. planned to be discharged once able to remain consistently off nicardipine Status: Acute (2) Chest pain: Atypical right-sided chest pain, which is now resolved. Troponins are mildly elevated, likely data entry representative of demand ischemia in the setting of hypertensive urgency. Troponin delta also not significant, denies any acute chest pain, ST-T wave no changes on EKG. Overall picture less concerning for acute [place], however cannot rule out angina. Patient will likely need stress test, however needs to be optimized from a CHF and blood pressure perspective first. will likely defer this to outpatient with cardiology follow up. Echocardiogram Diffuse hypokinesia of the left ventricle with a diminished ejection fraction of around 40 to 45%. Mildly dilated left ventricle. Normal right ventricular size with a slightly diminished ejection fraction. Status: Acute Qualifiers: Chest pain type: unspecified Qualified Code(s): R07.9 - Chest pain, unspecified (3) Acute exacerbation of CHF (congestive heart failure): he reports past history of CHF, currently on 40 mg of p.o. Lasix BID Status: Acute Qualifiers: Heart failure type: unspecified Qualified Code(s): I50.9 - Heart failure, unspecified Additional A&P Information NSTEMI as noted in his past history, however after talking to the patient he states that he has never had an angiogram or stent placement in the past. He had a stress test in 2010 which she reports was normal. He used to be on aspirin several years ago but discontinued it. I am not certain if he has a history of CAD in the past Currently his 10-year ASCVD risk score is at 16.9%. Added aspirin 81 mg p.o. for primary prevention and atorvastatin 40 mg p.o. daily given moderate ASCVD risk and abnormal echo findings DVT ppx: lovenox Full code Attestations Medical Necessity Statement*: optimization of blood pressure prior to discharge Coding Level of Care Code Acute Product Development Coordinator for [facility] Al Diagnoses Hypertensive urgency I16.0 Chest pain R07.9 Chest pain type: unspecified Acute exacerbation of CHF (congestive heart failure) I50.9 Heart failure type: unspecified
--- NOTE | 2020-12-08 17:46 | P.DS_ITS ---
Discharge Providers Date of Admission: 12/05/20 14:09 Date of Discharge: December 08, 2020 Attending Provider at Admission: Veronica Bazan MD Attending Provider at Discharge: Veronica Bazan MD Diagnoses at Discharge Discharge Diagnosis (1) Hypertensive urgency: Status: Acute (2) Chest pain: Status: Acute Qualifiers: Chest pain type: unspecified Qualified Code(s): R07.9 - Chest pain, unspecified (3) Acute exacerbation of CHF (congestive heart failure): Status: Acute Qualifiers: Heart failure type: unspecified Qualified Code(s): I50.9 - Heart failure, unspecified Reason for Visit Reason for Visit: SOB/Tightness/racing heart Hospital Course Hospital Course Patient is a 60-year-old male with past medical history of hypertension who presented to the hospital with chief complaints of atypical chest pain and found to be in hypertensive urgency with systolic blood pressure in excess of 220. He was admitted to the ICU, started on nicardipine drip. Multiple oral medications have been added to his regimen including amlodipine 10 mg p.o. daily, hydralazine 50 mg p.o. 4 times daily . metoprolol dose changed from 100 mg p.o. twice daily to 25 mg p.o. twice daily due to bradycardia. Cardizem was disc ontinued.. He was also found to be having CHF exacerbation, likely combined systolic and diastolic heart failure due to longstanding hypertension. Troponins were mildly elevated upon admission, no significant delta. No acute ST-T wave changes noted, less likely acute OH. Chest pain resolved with control of blood pressure. Patient will likely need a stress test, however does need optimization of CHF and blood pressure first. His blood pressure is much better controlled at the time of discharge, at last check it is at 139/116. He is instructed to maintain a blood pressure chart by taking it twice a day at the same time every day and bring it to follow-up with his primary care physician Dr. Mckeon. Referral has also been provided for outpatient cardiology. Aspirin 81 mg was added for primary prevention. It is unclear if patient has a past history of CAD, reports normal stress test from 2010. However echocardiogram noted to have LVEF of 40% with diffuse hypokinesia of the LV. 02 saturation maintained on RA Physical Exam Narrative: EXAM NARRATIVE: GEN: Awake, alert and oriented, no acute distress CVS: S1S2 N RS: CTA B/L all areas Abd: Soft, nt/nd , bs+ WHEEL CLEANER: no focal neuro deficits Discharge Data Data Completed and Pending: Completed Studies During Hospitalization Category Date Time Status XR chest 1V marlyn ble [id number] Urgent Exams 12/05/20 09:54 Completed CV echo complete* [id number] Routine Ultrasound 12/06/20 18:34 Completed Labs from last 24 hours 12/08/20 05:12 Sodium 141 Potassium 4.2 Chloride 105 Carbon Dioxide 26 Anion Gap 14.2 BUN 16 Creatinine 1.0 GFR Calculation 76.5 L Glucose 101 Calculated Osmolal ity 293 Calcium 8.7 Total Bilirubin 0.6 AST 23 ALT 20 Alkaline Phosphata se 59 Total Protein 6.7 Albumin 3.5 Globulin 3.2 Vitals: Last Vital Signs Temp 98 F 12/08/20 15:30 Pulse 79 12/08/20 17:15 Resp 14 12/08/20 17:15 BP 139/116 12/08/20 17:15 Pulse Ox 95 12/08/20 17:15 Discharge Plan Discharge Patient Disposition: Home Condition: Stable Prescriptions: New atorvastatin 40 mg Tablet 40 mg PO BEDTIME 30 Days Qty: 30 RF: 0 hydralazine 10 mg Tablet 50 mg PO QID 30 Days Qty: 120 RF: 0 aspirin 81 mg Tablet,Delayed Release (Dr/Ec) 81 mg PO DAILY 30 Days Qty: 30 RF: 0 amlodipine 10 mg Tablet 10 mg PO DAILY 30 Days Qty: 30 RF: 0 metoprolol tartrate 25 mg Tablet 25 mg PO BID@0900,2100 30 Days Qty: 30 RF: 0 Continued lisinopril 20 mg Tablet 20 mg PO BID@ RF: 0 Changed Lasix 40 mg Tablet 40 mg PO BID Qty: 0 RF: 0 Discontinued metoprolol tartrate 100 mg Tablet 100 mg PO BID@, RF: 0 diltiazem HCl 60 mg Tablet 60 mg PO TID@,, RF: 0 Discharge Orders: Discharge Order (Routine); Ordered 12/08/20 Ordered By: Veronica Bazan Referrals: Juan Mckeon DO [Referring] - 4-7 days (change in antihypertensives ) Ajith Duff [Family Provider] - Satya Pierson MD [Physician] - 2 weeks (Hypertensive urgency, mild troponin elevation, likely to need stress test as outpatient) Discharge Diet: Usual diet, Cardiac, Low Salt and Low Cholesterol Discharge Activity: Resume usual activity Activity Restrictions/Additional Instructions: Maintain a blood pressure chart, check blood pressure twice a day at same time every day and take it to your primary care provider and etiquette teacher appointment. Discharge Attestations Time Spent in Discharge Care*: greater than 30 min Quality Metrics Clinical Quality Measures During this hospital stay, did patient experience: None Coding Level of Care Code Acute [facility] [place] note Diagnoses Hypertensive urgency I16.0 Chest pain R07.9 Chest pain type: unspecified Acute exacerbation of CHF (congestive heart failure) I50.9 Heart failure type: unspecified
--- NOTE | 2020-12-08 18:32 | PC.NURSE ---
Patient off Cardine drip since 1900 yesterday, possibly going home today if blood pressure can on average maintain below 180 systolic with medications ordered. Dr Bazan at bedside at 1600 discussed with patient discharge planning and medications. I discussed with patient discharge orders in detail about medications due and what times. To take his morning meds with breakfast and to have a 1000 and 1400 med time and another one at bedtime, I wrote next to the medications when there due times were and what to watch for as far as side effects go. I talked to patient about follow up appointment with PCP within 4-7 days and to get a stress test scheduled within 2 weeks at the heart clinic. Patient verbalizes understanding on everything. Daughter picked up patient and he took his cell phone, wallet, clothes, cc card, and practice professional home with him.
== END 2020-12-08 18:15 | disposition home or self-care (01) | DRG 304 ==
LOC: ER 14:00 → CSU 14:33 → ICU 17:35
PROVIDERS: Hospitalist; Physician Assistant; Admitting Provider Student in an Organized Health Care Education/Training Program; Emergency Provider Family Medicine; Family Provider Family Medicine; Visit Provider Student in an Organized Health Care Education/Training Program
DX: I16.0 Hypertensive urgency (principal); I50.43 Acute on chronic combined systolic (congestive) and diastolic (congestive) heart failure; I24.8 Other forms of acute ischemic heart disease; I11.0 Hypertensive heart disease with heart failure; Z91.19 Patient's noncompliance with other medical treatment and regimen; Z87.891 Personal history of nicotine dependence
CPT/HCPCS: 36415; 71045; 80053; 80061; 83036; 83880; 84443; 84484; 85025; 85378; 87426; 93005; 93306; 96372; 96374; 96375; 99285; J1650; J1940; J2270; J3490

== ENCOUNTER 2021-01-16 06:33 | Outpatient (CLI) | payer OTHER, SELFPAY ==
--- NOTE | 2021-01-16 07:14 | ECG_ITS ---
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 Baseline heart rate was 56 beats per minute. Baseline blood pressure was 205/117 millimeters of mercury. Target heart rate was 161 beats per minute. Maximum heart rate achieved was 146, which was 90 % of the target heart rate. Maximum blood pressure was 247/111 millimeters of mercury. Total exercise time was 6 minutes. Maximum METs achieved was 7.0, maximum VO2 was 24.5. The reason for ending the test was completion of the protocol. The patient complained of shortness of breath during the stress test, which then resolved at the end of the test. ELECTROCARDIOGRAM: BASELINE: Showed sinus rhythm, normal axis, incomplete right bundle branch block, no significant ST-T changes at the baseline noted. EXERCISE: At the peak exercise level, no significant ST-T changes suggestive of ischemia noted. RECOVERY: During the recovery period, heart rate dropped appropriately. No significant ST-T changes in the recovery suggestive of ischemia noted. CONCLUSION: 1. Exercise capacity poor. 2. Heart rate response was tachycardic. 3. Blood pressure response was hypertensive. 4. Symptoms not suggestive of ischemia. 5. Electrocardiogram portion of the stress test was not suggestive of ischemia. 6. Nuclear scan will be documented separately. Electronically Signed On 02-11-2021 19:39:56 CDT by CIARRA RODRIGUEZ [id number]
--- NOTE | 2021-01-16 07:15 | NMCV_ITS ---
NM pradeep perf SPECT r/s* [id number] Seda Azar Age: 60 Gender: M : 1960 Exam Date: 01/16/2021 08:13 Ordering Phys: Lance Navarrete M.D ([email or web address]) Technologist: CHELLY Dumas Exam Location: [facility] Indications: CHEST PAIN STRESS TEST [facility] IMAGE PROTOCOL Rest/Stress 1 Exercise Day Radiopharmaceutical Dose (mCi) Administration Site Administered by Rest: Tc-99m 10.8 IV CHELLY Rivera Sestamibi Stress:Tc-99m 32.5 IV CHELLY Rivera Sestamibi Rest: 16-Jan-2021 60 Discovery 630 Stress: 16-Jan-2021 15 Discovery 630 Radiopharmaceutical was injected at 86% maximum heart rate. Images obtained in supine and prone position. SPECT RESULTS Technical Quality: Excellent Raw Data Analysis: Normal Image Corrections: No attenuation or motion correction applied Summed Stress Score: 10 Summed Rest Score: 13 Summed Difference Score: 2 PERFUSION FINDINGS Large area of fixed perfusion defect noted in basal to distal inferior, basal inferolateral and distal anterior apical wall suggestive of old myocardial infarction versus scarring. FUNCTIONAL RESULTS (calculated via Gated SPECT) Stress Image LV EF (%): 25 Stress EDV (mL):350 TID: 0.98 Stress ESV (mL):261 Rest Image LV EF (%): 25 FUNCTIONAL FINDINGS: Inferior wall akinesis distal anterior and apical wall akinesis. Severely depressed LV function IMPRESSIONS Large area of old myocardial infarction versus scarring noted in basal to distal inferior and basal inferolateral wall with possible lesion in RCA. Small area of fixed perfusion defect noted in the distal anterior and apical wall suggestive of old myocardial infarction in the territory of distal LAD. There is no ischemia. EKG segment will be documented separately. Satya Pierson MD (Electronically Signed) Final Date: 17 January 2021 20:49 S
[2021-01-16 07:23] VITALS: BMI 39.7
--- NOTE | 2021-01-16 07:28 | PC.NURSE ---
THE PATIENT WAS STUCK 2X BY THIS NURSE AND 2X BY NEEL SALEH. , [employer] [employer] WAS ABLE TO GET A 24G IN THE LEFT WRIST X 2 ATTEMPT. THE PATIENT TOLERATED THE PROCEDURE WELL AFTER THIS NURSE OFFERING FOR HIM TO COME BACK AND TRY ANY DAY IF HE DID NOT AGREE WITH MULTIPLE ATTEMPTS. HE STATED THAT HE WISHED TO CONTINUE AND FINISH THE TEST TODAY.
[2021-01-16] MEDS: metoprolol tartrate 1 mg/1 mL SDV 5 mL 5 MG IV (09:07)
[2021-01-16 09:33] VITALS: BP 179/106; PULSE 72
== END 2021-01-16 06:34 | disposition home or self-care (01) ==
LOC: CDL 06:36
PROVIDERS: PCP Family Medicine; Visit Provider Internal Medicine
DX: R07.9 Chest pain, unspecified (principal); R06.02 Shortness of breath; I25.2 Old myocardial infarction
CPT/HCPCS: 78452; 93017; A9500; J3490

== ENCOUNTER 2022-08-19 10:24 | Emergency (ER) | payer OTHER, SELFPAY ==
[2022-08-19 10:40] VITALS: BP 157/91; PULSE 69; RESP 14; TEMP 37.2; O2SAT 94; BMI 43.0
--- NOTE | 2022-08-19 11:22 | ED_ITS ---
HPI - Back Pain/Injury General: Chief Complaint: Back Pain/Injury Stated Complaint: back spasms Time Seen by Provider: 08/19/22 11:00 History of Present Illness: Patient is a 62-year-old male who comes to the ED with lower back pain. Patient has had lower back pain like this in the past. He says it started about 3 days ago. He works at [employer] and does do some lifting. Pain is located left lower back and he rates it currently a 9 out of 10. Endorses having some muscle spasms as well lower back. Pain worsens when he tries to get up or if he is twisting his torso. Denies any bladder or bowel incontinence, pelvic anesthesia or any weakness to lower extremities. Associated symptoms: Deny abdominal pain, chills, dysuria, fatigue, fever(s), hematuria, nausea or vomiting Review of Systems Const: Denies: fever(s), chills or fatigue Eyes: Denies: change in vision or eye discomfort ENMT: Denies: throat pain, odynophagia, nasal discharge or nasal congestion Card: Denies: chest pain, palpitations, edema, swelling of feet/ankles, dyspnea on exertion or orthopnea Resp: Denies: dyspnea, productive cough or non-productive cough GI: Denies: abdominal pain, nausea, vomiting, diarrhea, constipation or hematochezia : Denies: flank pain, difficulty urinating, dysuria or hematuria Musc: Reports: back pain; Denies: neck pain or extremity swelling Skin/Breast: Denies: rash or new lesions Neuro: Denies: headache(s), numbness in extremities or weakness in extremities PFS ED PFSH: Medical History Hypertension Nonadherence to medication Family History Family/Other CAD (coronary artery disease) Denies family history of Diabetes Clotting disorder Dementia Chronic kidney disease (CKD) Suicide Anesthesia complication Bleeding disorder Lung disease Cancer Stroke Social History Smoking and tobacco status: former smoker Alcohol intake: current Alcohol intake frequency: holidays/special occasions only Alcohol type: beer Physical Exam Const: COMMON NORMALS: no acute distress, patient oriented x3 and alert HENMT: COMMON NORMALS: normocephalic HEAD & SCALP: normocephalic MOUTH: Normal oral and palatal mucosa present THROAT: posterior oropharynx normal and uvula midline Neck/C-Spine: COMMON NORMALS: supple GENERAL: Yes normal visual inspection Resp: COMMON NORMALS: normal respiratory effort, No retractions, No use of accessory muscles and clear to auscultation bilaterally AUSCULTATION: clear to auscultation bilaterally Cardio: COMMON NORMALS: regular rate, regular rhythm, S1 normal heart sound present, S2 normal heart sound present, No gallops present (Cardio), No clicks present (Cardio), No murmurs present (Cardio) and Peripheral pulses 2+ throughout RATE: regular rate RHYTHM: regular rhythm HEART SOUNDS: S1 normal heart sound present and S2 normal heart sound present PERIPHERAL PULSES: Peripheral pulses 2+ throughout GI: COMMON NORMALS: Normal to inspection, nondistended, normoactive bowel sounds present, Soft to palpation, non-tender and no masses PALPATION: Yes Soft to palpation : COMMON NORMALS: Yes no CVA tenderness BLADDER/KIDNEY EXAM: Yes no CVA tenderness Back/Pelvis: COMMON NORMALS: no CVA tenderness LUMBAR SPINE/LOWER BACK: Yes paraspinal muscle tenderness Lumbar paraspinal muscle tenderness: left Extremity: COMMON NORMALS: normal to inspection Neuro: COMMON NORMALS: patient oriented x3 SENSORIUM/ORIENTATION: Yes alert GAIT: Yes Normal gait present Skin: GENERAL SKIN EXAM: dry skin Course Vital Signs: Vital signs: Vital Signs Temperature 99.0 F 08/19/22 10:40 Pulse Rate 69 08/19/22 10:40 Respiratory Rate 14 08/19/22 10:40 Blood Pressure 157/91 08/19/22 10:40 Pulse Oximetry 94 08/19/22 10:40 Oxygen Delivery Me thod 08/19/22 10:40 MDM - Back Pain/Injury Medical Decision Making Patient is a 62-year-old male who comes to the ED with lower back pain. Patient has had lower back pain like this in the past. He says it started about 3 days ago. He works at [employer] and does do some lifting. Pain is located left lower back and he rates it currently a 9 out of 10. Endorses having some muscle spasms as well lower back. Pain worsens when he tries to get up or if he is twisting his torso. Denies any bladder or bowel incontinence, pelvic anesthesia or any weakness to lower extremities. Vitals are stable. Exam of patient shows some left lumbar paraspinal muscle tenderness but rest of exam is benign. Patient was given Toradol, Norflex and Decadron. He was discharged home with a prescription for methocarbamol, and Celebrex for pain. Told to follow-up with his PCP within the next week for reevaluation. Strict return to ED precautions given. Patient understood and agreed with plan. Discharge Plan Discharge Patient Disposition: Home Clinical Impression: Low back pain Qualifiers: Chronicity: acute Back pain laterality: left Sciatica presence: without sciatica Qualified Code(s): M54.50 - Low back pain, unspecified Condition: Stable Prescriptions: New Celebrex 100 mg capsule 100 mg PO BID PRN (Reason: pain) Qty: 30 0RF methocarbamol 750 mg tablet 750 mg PO Q8H PRN (Reason: Back muscle spasms and pain) Qty: 20 0RF No Action hydralazine 100 mg tablet 100 mg PO TID Qty: 90 5RF metoprolol tartrate 25 mg tablet 25 mg PO BID 90 Days Qty: 180 3RF Lasix 40 mg tablet 40 mg PO BID Qty: 180 3RF atorvastatin 40 mg tablet 40 mg PO DAILY Qty: 90 3RF amlodipine 10 mg tablet 10 mg PO DAILY Qty: 90 3RF lisinopril 40 mg tablet 40 mg PO DAILY Qty: 90 3RF Discharge Orders: Discharge ED (Routine); Ordered 08/19/22 Ordered By: Chino Stratton Referrals: Juan Mckeon DO [Primary Care Provider] - Discharge Diet: Regular Discharge Activity: Increase activity as tolerated Patient Instructions: Low Back Strain (ED), Acute Low Back Pain (ED) Activity Restrictions/Additional Instructions: Follow-up with medical provider as directed in the next 7 to 10 days for reevaluation. Take medications as prescribed. Return to the ER or your medical provider if condition worsens. Please read and understand discharge instructions. Thank you for choosing [facility] for your healthcare needs today. Please realize this is an emergency room and that we are providing you with a medical screening exam and this may not be complete and all inclusive of all the testing and or work up that you may need to determine your ailment or severity of your illness. It is very important that you follow up as instructed or that you return to the Emergency Department should you have concerns or if your condition changes or worsens in any way. Coding Level of Care Code ED Resource Analyst for Ramos Melendez Exam Comprehensive
[2022-08-19] MEDS: dexamethasone 10 mg/mL INJ IM (11:38)
[2022-08-19] MEDS: orphenadrine 30 mg/mL Inj 2 mL 60 MG IM (11:38)
[2022-08-19] MEDS: ketorolac 60 mg/2 mL INJ IM (11:38)
== END 2022-08-19 11:39 | disposition home or self-care (01) ==
PROVIDERS: Emergency Provider Physician Assistant; PCP Family Medicine
DX: M54.50 Low back pain, unspecified (principal); I10 Essential (primary) hypertension; Z87.891 Personal history of nicotine dependence
CPT/HCPCS: 96372; 99284; J1100; J1885; J2360